=== PATIENT | female | born 1985 | race African-American/Black ===

== ENCOUNTER → 2023-12-09 14:59 | Outpatient (REF) | payer OTHER, SELFPAY | LOC: RAD 14:59 | PROVIDERS: ATTENDING PHYSICIAN Obstetrics & Gynecology | DX: Z36.9 Encounter for antenatal screening, unspecified (principal) | CPT/HCPCS: 76801; 76817 ==

== ENCOUNTER → 2023-12-22 14:03 | Outpatient (REF) | payer OTHER, SELFPAY | LOC: RAD 14:03 | PROVIDERS: ATTENDING PHYSICIAN Obstetrics & Gynecology | DX: O26.851 Spotting complicating pregnancy, first trimester (principal) | CPT/HCPCS: 76801; 76817 ==

== ENCOUNTER 2023-12-30 06:24 | Day surgery (SDC) | payer OTHER, SELFPAY ==
[2023-12-30] VITALS (7 sets, daily range): BP systolic 104–121; BP diastolic 52–72; BMI 37.3
[2023-12-30] MEDS: TYLENOL 1000 MG PO (10:41)
[2023-12-30] MEDS: NORMOSOL-R 1000 IV (10:42)
[2023-12-30] MEDS: VIBRAMYCIN 270 MG IV (11:42)
--- NOTE | 2023-12-30 18:28 | W.IMMPOSTOP ---
Surgical Immed Post Op Note
-
Primary Surgeon: Radha Gr DO
Assisting Surgeon: none
Pre-op Diagnosis: Missed 10wks by LMP 6wks by CRL
Post-op Diagnosis: same
Procedure Performed: Dilation and evacuation
Anesthesia Type: general Dr. eSxton
Specimen / Cultures: products of conception
Estimated Blood Loss: 10ml
Complications: none
Operative Findings: Uterus sounded to 10 cm, POC visualized upon suction.
RH positive and does not require rhogam.
Sponge counts correct.
Stable to recovery.
== END 2023-12-30 16:05 | disposition home or self-care (01) ==
LOC: SDS 06:24
PROVIDERS: ATTENDING PHYSICIAN Obstetrics & Gynecology
DX: O02.1 Missed abortion (principal); Z3A.10 10 weeks gestation of pregnancy
CPT/HCPCS: 59820; 88305; 86850; 86900; 86901

== ENCOUNTER 2024-07-19 10:13 | Emergency (ER) | payer OTHER, SELFPAY ==
[2024-07-19 10:24] VITALS: BP 141/92
[2024-07-19 11:04] LABS: % Basophils 0.5 % (0-2); % Eosinophils 4.5 % (0-6); % Immature Granulocytes 0.5 % (0-0.5); % Lymphocytes 33.5 % (20.5-51.1); % Monocytes 18.2 % (1.7-9.3); % Neutrophils 42.8 % (42.2-75.2); Absolute Eosinophils 0.2 10^3/uL (0-0.7); Absolute Lymphocytes 1.4 10^3/uL (1.2-3.4); Absolute Monocytes 0.8 10^3/uL (0.1-0.6); Absolute Neutrophils 1.8 10^3/uL (1.4-6.5); Hematocrit 37.3 % (37.0-47.0); Hemoglobin 12.4 g/dL (12.0-16.0); Mean Corp Hgb Conc. 33.2 g/dL (33.0-37.0); Mean Corpuscular Volume 90.1 fL (81.0-99.0); Mean Platelet Volume 9.2 fL (7.4-10.4); Nucleated Red Blood Cells % 0 %; Platelet Count 295 10^3/uL (130-400); Red Blood Cell Count 4.14 10^6/uL (4.20-5.40); Red Cell Dist. Width 12.6 % (11.5-14.5); White Blood Cell Count 4.2 10^3/uL (4.8-10.8)
[2024-07-19 11:22] LABS: HCG, Serum Qualitative Screen Negative
[2024-07-19 11:31] LABS: ALT (SGPT) 16 U/L (0-35); AST (SGOT) 21 U/L (14-36); Alkaline Phosphatase 44 U/L (38-126); Blood Urea Nitrogen 9 mg/dl (7-17); Calcium 8.4 mg/dl (8.4-10.2); Carbon Dioxide 25 mmol/L (22-30); Chloride 105 mmol/L (98-107); Glucose 91 mg/dl (70-99); Potassium 3.6 mmol/L (3.5-5.1); Sodium 137 mmol/L (135-145); Total Bilirubin 0.2 mg/dl (0.2-1.3); Total Protein 6.8 g/dl (6.3-8.2); eGFR > 60.00
[2024-07-19 11:43] LABS: COVID-19 Antigen Negative (Negative)
[2024-07-19 11:53] VITALS: BMI 39.1
[2024-07-19] MEDS: DUONEB 3 ML INH (12:34)
[2024-07-19] MEDS: DECADRON 10 MG PO (12:34)
--- NOTE | 2024-07-19 12:39 | ED.GENMED ---
History of Present Illness
General
Chief Complaint: Breathing Problem
Source: patient
Exam Limitations: none
Time Seen by Provider: 07/19/24 12:07
Nursing documentation reviewed up to this point in time: agreed with
History of Present Illness
History of Present Illness:
39 yo female w h/o asthma, migraines, here for cough, today had mid chest pains with the cough. States her Albuterol and Ventolin Inhalers are not helping her cough. Denies fever, chills. Denies abd pain, n/v/d/c. Family at home with URI symptoms.
Past History
Past History
ED Past Medical History: Asthma
ED Past Surgical History: Cholecystectomy, Gynecological, Tonsilectomy and Other
Social History
Tobacco: Non-smoker
Alcohol: Occasional
Personal:
Living: with family
Employment: Employed
Review of Systems
Review of Systems
Allergies reviewed?: Yes
All Other Systems: ROS reviewed and negative except as documented in HPI and ROS
Constitutional: Denies fever
EENT: Reports sore throat (from coughing)
Respiratory: Reports cough; Denies trouble breathing
Cardiac: Reports chest pain; Denies diaphoresis, palpitations or syncope
ABD/GI: Denies abdominal pain, nausea, vomiting, diarrhea or anorexia
: Denies dysuria, frequency or difficulty voiding
Musculoskeletal: Reports no symptoms
Skin: Reports no symptoms
Neurological: Reports no symptoms
Phy Exam
Physical Exam
Physical Exam:
GENERAL: No acute distress. A&Ox3.
CONSTITUTIONAL: Afebrile.
EYES: clear, conjunctivae normal
ENMT: moist mucus membranes, Pharynx nl
RESPIRATORY: Regular respirations, nonlabored, lungs clear. Occasional dry hacking cough. No wheezes, rales or rhonchi
CARDIOVASCULAR: Regular rate and rhythm, no murmurs, no rubs.
GI: Soft, nontender, normal BS
MUSCULOSKELETAL: Moves with ease. Well perfused.
SKIN: Warm, dry, normal
PSYCH: Normal mood and affect. Well kept, interactive and appropriate
NEUROLOGIC: Awake, alert and oriented. No focal neurological deficits
Course
Orders/Labs/Results
Orders:
Orders
07/19/24 10:28
Electrocardiogram (*1) Urgent
Reason for Study: Shortness of Breath
EKG- Treatment ONCE
Test Result ONCE
CR Chest - 2 Views Urgent
Comment:
Reason For Exam: cough
07/19/24 10:48
COVID-19 Antigen Urgent
Source: Nasal Swab
Complete Blood Count/With Diff Urgent
Comprehensive Metabolic Panel Urgent
HCG, Serum Qualitative Screen Urgent
Influenza A+B Rapid Molecular Urgent
ELISEO Source: Nasal Swab
Specimen Description:
07/19/24 12:27
Dexamethasone [Decadron] 10 mg PO NOW STA
Ipratropium/Albuterol Sulfate [Duoneb] 3 ml INH R NOW STA
Abnormal Lab Results
07/19/24
10:48
WBC 4.2 L 10^3/uL
(4.8-10.8)
RBC 4.14 L 10^6/uL
(4.20-5.40)
Absolute Monos (auto) 0.8 H 10^3/uL
(0.1-0.6)
Monocytes % 18.2 H %
(1.7-9.3)
07/19/24 10:48
07/19/24 10:48
Vital Signs
Initial and Last Documented VS:
Initial Vital Signs
Temp Pulse Resp BP Pulse Ox
98.5 F 91 16 141/92 100
07/19/24 10:24 07/19/24 10:24 07/19/24 10:24 07/19/24 10:24 07/19/24 10:24
Last Documented Vital Signs
Temp Pulse Resp BP Pulse Ox
98.5 F 91 16 128/71 100
07/19/24 10:24 07/19/24 10:24 07/19/24 10:24 07/19/24 13:00 07/19/24 13:00
MDM/Problems Addressed
Differential Diagnosis Includes:
Viral URI, Asthma exacerbation, bronchitis, PNA
MDM/Problems Addressed:
39 yo female w h/o asthma, migraines, here for cough, today had mid chest pains with the cough. States her Albuterol and Ventolin Inhalers are not helping her cough. Denies fever, chills. Denies abd pain, n/v/d/c. Family at home with URI symptoms.
Afebrile, NAD
Lungs CTA, intermittent dry hacking cough noted.
EKG NSR
CBC, CMP normal
Covid neg
Flu neg
1:10 PM:
CXR NAD
Patient states after DuoNeb and Decadron she is feeling much better
Prescription for Tessalon Perles and short burst of prednisone sent to her pharmacy.
She has a nebulizer at home that her son uses with plenty of albuterol she can use if needed
*Critical Care Note
Total Time (30-74mins, 75-104mins- exclusive of procedures): Not Applicable
ED Attending Note
-
Portions of this chart may have been created with voice recognition software.� Occasional wrong word or��sound alike� substitutions may have occurred due to the inherent limitations of voice recognition software.
Discharge Plan
Departure
Patient Disposition: Home (Routine Discharge)
Date of Disposition: 07/19/24
Time of Disposition: 13:14
Patient with high blood pressure during this ER visit?: No
Condition: Good
Discharge Problem:
URI (upper respiratory infection)
Instructions: Upper respiratory infection in adults - Discharge instructions
Prescriptions:
New
prednisone 20 mg tablet
40 mg PO DAILY Qty: 8 0RF
benzonatate 100 mg capsule
100 mg PO TID PRN (Reason: Cough) Qty: 30 0RF
No Action
ibuprofen 200 mg Tablet
400 mg PO Q6H PRN (Reason: PAIN/CRAMPING)
albuterol sulfate [ProAir HFA] 90 mcg/actuation Hfa Aerosol Inhaler
2 puff INHALATION 6XD PRN (Reason: ASTHMA)
loratadine [Claritin] 10 mg Tablet
10 mg PO DAILY
scopolamine base 1 mg over 3 days Patch 3 Day
misoprostol 200 mcg Tablet
See Rx Instructions .ROUTE .COMPLEX
Rx Instructions:
Took last night
Referrals:
Pari Ramey CRNP [Family Provider] - As needed
Activity Restrictions/Additional Instructions:
As we discussed, your EKG, chest xray and lab work are all normal.
You most likely have a viral upper respiratory infection
I sent a prescription to your pharmacy for Tessalon Perles for the cough and also Prednisone 40 mg daily for 4 days for your asthma.
Drink plenty of fluids.
Interventions
Interventions:
*Risk Screen - Suicide Last Done: 07/19/24 10:35
*General Assessment Last Done: 07/19/24 11:53
*Neglect/Abuse Screening Last Done: 07/19/24 11:53
ED- Fall Risk Assessment Last Done: 07/19/24 11:53
*ED COVID-19 Vaccine History Last Done: 07/19/24 11:53
*Nursing Disposition Last Done: 07/19/24 13:22
ED- Cardiac Assessment Last Done: 07/19/24 11:53
ED- Pulmonary Assessment Last Done: 07/19/24 11:53
Discharge Date and Time
Discharge Date/Time: 07/19/24 13:22
Print Language: ROMANIAN
[2024-07-19 13:00] VITALS: BP 128/71
== END 2024-07-19 13:22 | disposition home or self-care (01) ==
LOC: EMR 10:13
PROVIDERS: EMERGENCY PHYSICIAN Emergency Medicine; FAMILY PHYSICIAN Nurse Practitioner Family
DX: J06.9 Acute upper respiratory infection, unspecified (principal); J45.909 Unspecified asthma, uncomplicated; Z90.49 Acquired absence of other specified parts of digestive tract
CPT/HCPCS: 94640; 99285; 71046; 80053; 84703; 85025; 87502; 87811; 93005

== ENCOUNTER → 2024-10-21 10:48 | Outpatient (REF) | payer OTHER, SELFPAY | LOC: RAD 10:48 | PROVIDERS: ATTENDING PHYSICIAN Nurse Practitioner Family | DX: O26.851 Spotting complicating pregnancy, first trimester (principal) | CPT/HCPCS: 76801 ==

== ENCOUNTER → 2024-12-13 15:55 | Outpatient (REF) | payer OTHER, SELFPAY | LOC: PNTC 15:55 | PROVIDERS: ATTENDING PHYSICIAN Obstetrics & Gynecology | DX: Z34.82 Encounter for supervision of other normal pregnancy, second trimester (principal) | CPT/HCPCS: 76805 ==

== ENCOUNTER → 2025-01-10 09:00 | Outpatient (REF) | payer OTHER, SELFPAY | LOC: PNTC 09:00 | PROVIDERS: ATTENDING PHYSICIAN Obstetrics & Gynecology | DX: O99.210 Obesity complicating pregnancy, unspecified trimester (principal); O09.529 Supervision of elderly multigravida, unspecified trimester | CPT/HCPCS: 76811; 76817 ==

== ENCOUNTER 2025-01-24 10:47 | Observation (INO) | payer OTHER, SELFPAY ==
[2025-01-24 11:39] LABS: Urine Character Clear (Clear)
[2025-01-24 12:21] VITALS: BP 122/68; BMI 42.6
== END 2025-01-24 15:36 | disposition home or self-care (01) ==
LOC: LDRP 10:47
PROVIDERS: ADMITTING PHYSICIAN Student in an Organized Health Care Education/Training Program; ATTENDING PHYSICIAN Obstetrics & Gynecology
DX: O36.8120 Decreased fetal movements, second trimester, not applicable or unspecified (principal); O26.892 Other specified pregnancy related conditions, second trimester; R10.9 Unspecified abdominal pain; Z3A.22 22 weeks gestation of pregnancy
CPT/HCPCS: 76815; 76817; 76820; 81003; 81015; 87077; 87086; 87147; G0378

== ENCOUNTER → 2025-01-30 14:28 | Outpatient (REF) | payer OTHER, SELFPAY | LOC: PNTC 14:28 | PROVIDERS: ATTENDING PHYSICIAN Obstetrics & Gynecology | DX: O41.00X0 Oligohydramnios, unspecified trimester, not applicable or unspecified (principal) | CPT/HCPCS: 76815; 76820 ==

== ENCOUNTER → 2025-02-13 13:48 | Outpatient (REF) | payer OTHER, SELFPAY | LOC: PNTC 13:48 | PROVIDERS: ATTENDING PHYSICIAN Obstetrics & Gynecology | DX: O41.00X0 Oligohydramnios, unspecified trimester, not applicable or unspecified (principal) | CPT/HCPCS: 76816 ==

== ENCOUNTER → 2025-02-27 15:56 | Outpatient (REF) | payer OTHER, SELFPAY | LOC: PNTC 15:56 | PROVIDERS: ATTENDING PHYSICIAN Student in an Organized Health Care Education/Training Program | DX: O99.210 Obesity complicating pregnancy, unspecified trimester (principal); Z86.39 Personal history of other endocrine, nutritional and metabolic disease; O41.93X0 Disorder of amniotic fluid and membranes, unspecified, third trimester, not applicable or unspecified | CPT/HCPCS: 76815 ==

== ENCOUNTER → 2025-04-03 09:55 | Outpatient (REF) | payer OTHER, SELFPAY | LOC: PNTC 09:55 | PROVIDERS: ATTENDING PHYSICIAN Student in an Organized Health Care Education/Training Program | DX: O09.529 Supervision of elderly multigravida, unspecified trimester (principal); O99.210 Obesity complicating pregnancy, unspecified trimester | CPT/HCPCS: 76816 ==

== ENCOUNTER 2025-04-17 19:18 | Inpatient (IN) | payer OTHER, SELFPAY ==
[2025-04-17 17:43] LABS: Urine Character Clear (Clear)
[2025-04-17 17:48] LABS: Urine Squamous Cell >30 /LPF (Few)
[2025-04-17 17:49] LABS: Urine White Cell 0-2 /HPF (0-5)
[2025-04-17 17:50] LABS: Urine Red Blood Cell 50-60 /HPF (0-2)
[2025-04-17 17:52] VITALS: BP 150/82; BMI 43.8
[2025-04-17 17:56] LABS: Hematocrit 31.8 % (37.0-47.0); Hemoglobin 10.7 g/dL (12.0-16.0); Mean Corp Hgb Conc. 33.6 g/dL (33.0-37.0); Mean Corpuscular Volume 89.1 fL (81.0-99.0); Nucleated Red Blood Cells % 0 %; Platelet Count 253 10^3/uL (130-400); Red Cell Dist. Width 12.6 % (11.5-14.5)
[2025-04-17 18:06] LABS: ALT (SGPT) 12 U/L (0-35); AST (SGOT) 20 U/L (14-36); Albumin 3.2 g/dl (3.5-5.0); Alkaline Phosphatase 95 U/L (38-126); Blood Urea Nitrogen 12 mg/dl (7-17); Calcium 9.0 mg/dl (8.4-10.2); Carbon Dioxide 25 mmol/L (22-30); Chloride 106 mmol/L (98-107); Estimated Creatinine Clearance > 125 ml/min; Glucose 80 mg/dl (70-99); Potassium 4.3 mmol/L (3.5-5.1); Sodium 133 mmol/L (135-145); Total Protein 6.0 g/dl (6.3-8.2); eGFR > 60.00
[2025-04-17] MEDS: ADALAT 10 MG PO (18:58)
[2025-04-17] MEDS: CELESTONE SOLUSPAN 2 MG IM (20:09)
[2025-04-17] MEDS: LR 1000 IV (20:25)
[2025-04-17] MEDS: MAGNESIUM SULFATE 100 IV (20:27)
[2025-04-17] MEDS: MAGNESIUM SULFATE 40 GRAM 1000 IV (20:47)
[2025-04-17] MEDS: CYTOTEC 25 MICROGRAM VAG (21:26)
--- NOTE | 2025-04-17 21:26 | CON.NEO ---
Consultation
-
Date/Time Consultation Requested: 04/17/25 @ 2009
Date/Time Consultation Performed: 04/17/25 @ 2054
Requesting Provider: Dr Flores
Performing Provider: Dr Beck-Leonid
Reason for Consultation: 39 yo at 34 2/7 weeks with severe gHTN with severe features for IOL.
Consultation - Neonatology
Maternal Labs
Blood Type: A Positive
Antibody Screen: Negative
RPR: Nonreactive
Rubella: Immune
Hep B S Ag: Negative
Hep C: Negative
HIV: Nonreactive
Group B Strep: Positive
Chlamydia/GC: Negative
Consult
Points discussed at consult:
- Management at delivery including the possibility of CPAP/intubation/surfactant discussed
- Respiratory: RDS possibility with possibility of worsening for 24-48 hrs, management including CPAP/surfactant/ventilator support may be required
- Nutrition: Hypoglycemia, need for IV fluids, gradual feed advance, Gavage feeding, importance of colostrum feeding, initiation of expression of colostrum within 3-4 hours, availability of donor milk, safety fo donor milk etc. were discussed.
- Procedures: Intubation, CPAP, IV placement, blood tests, umbilical arterial or venous lines, gavage feedings were discussed
- CVS: possibility of PDA not discussed in detail at this time
- [employer]: Rare possibility of IVH and need for head US, grading of IVH and intermediate manager effects of Grade III/IV although extremely rare at >32 weeks were discussed
- Jaundice possibility and need for phototherapy discussed
- Family Centered Care: Discussed FCC with emphasis on parental participation during sign off and during management rounds and is encouraged. Availability of rachid eyes camera also discussed
- Visitation policy.
Mom and Dad were given the opportunity to ask questions throughout and open invitation to call if any questions come as they absorb all the information given so far.
Face to Face Time
Total [id number] Time (in Minutes): 40 mins
[2025-04-18] MEDS: PROCARDIA XL (EXTENDED RELEASE) 30 MG PO (01:53)
[2025-04-18] MEDS: PITOCIN 30 UNITS/NSS 500 ML IV ×2 (01:54→11:50)
[2025-04-18] MEDS: PENICILLIN 110 UNITS IV (01:54)
[2025-04-18] MEDS: PENICILLIN 55 UNITS IV ×2 (05:48→10:11)
[2025-04-18] MEDS: CELESTONE SOLUSPAN 2 MG IM (08:02)
[2025-04-18] MEDS: LR 1000 IV ×2 (10:12→23:34)
[2025-04-18] MEDS: SUBLIMAZE 100 MCG EPIDURAL (10:12)
[2025-04-18] MEDS: FENTANYL/BUPIVACAINE 100 EPIDURAL (10:12)
[2025-04-18 12:18] LABS: B.E. - POC -5.0 mmol/L; Blood Urea Nitrogen - POC 7 mg/dl (3-120); Chloride - POC 100 mmol/L (96-111); Creatinine - POC 0.63 mg/dl (0.3-1.0); Glucose - POC 96 mg/dl (70-99); HCO3 - POC 23 mmol/L (21-28); Hematocrit - POC 47 % PCV (37-47); Hemodilution- POC No; Hemoglobin Calculated - POC 16.0; Ionized Calcium - POC 1.27 mmol/L (1.15-1.33); O2 Saturation %Calculated-POC 26.7 % (94-98); PCO2 - POC 52 mmHg (35-48); PO2 - POC 21 mmHg (83-108); Potassium - POC 5.1 mmol/L (3.5-5.1); Sodium - POC 134 mmol/L (136-145); Specimen Type - POC Arterial; pH - POC 7.25 (7.35-7.45)
[2025-04-18] MEDS: ZITHROMAX INFUSION 250 IV (13:19)
[2025-04-18] MEDS: MAGNESIUM SULFATE 40 GRAM 1000 IV (16:27)
[2025-04-18] MEDS: TORADOL 15 MG IV (18:50)
[2025-04-18] MEDS: COLACE 100 MG PO (19:47)
[2025-04-19] MEDS: TORADOL 15 MG IV ×3 (00:44→14:05)
[2025-04-19] MEDS: FLUSH (NSS) 3 FLUSH IV (00:45)
[2025-04-19 03:33] LABS: Hematocrit 29.1 % (37.0-47.0); Hemoglobin 9.9 g/dL (12.0-16.0); Mean Corp Hgb Conc. 34.0 g/dL (33.0-37.0); Mean Corpuscular Volume 89.0 fL (81.0-99.0); Platelet Count 267 10^3/uL (130-400); Red Cell Dist. Width 12.7 % (11.5-14.5)
[2025-04-19] MEDS: TYLENOL 650 MG PO (06:40)
[2025-04-19] MEDS: PRENATAL PLUS 1 TABLET PO (07:46)
[2025-04-19] MEDS: TRANDATE 200 MG PO ×2 (12:09→20:02)
[2025-04-19] MEDS: COLACE 100 MG PO ×2 (14:05→20:02)
--- NOTE | 2025-04-19 14:16 | W.PN.ANS.POP ---
Anesthesia Post Operative
- Anesthesia Post Op Note
Vital Signs Stable-See Nursing Note: Yes
Airway Patent: Yes
Adequate Pain Control: Yes
Change in Mental Status: No
Current Postoperative Nausea & Vomiting: No
Anesthesia Complications: No
General Anesthetic Recall: No
Unplanned Admission: No
Post Op Hydration Adequate: Yes
[2025-04-20] MEDS: TYLENOL 650 MG PO ×4 (04:20→19:42)
[2025-04-20] MEDS: MOTRIN 600 MG PO ×3 (04:20→21:36)
[2025-04-20] MEDS: PRENATAL PLUS 1 TABLET PO (07:51)
[2025-04-20] MEDS: COLACE 100 MG PO ×2 (07:51→19:42)
[2025-04-20] MEDS: FEOSOL 325 MG PO (07:51)
[2025-04-20] MEDS: TRANDATE 200 MG PO ×2 (08:00→19:43)
[2025-04-21] MEDS: MOTRIN 600 MG PO ×3 (04:18→18:35)
[2025-04-21] MEDS: TYLENOL 650 MG PO ×3 (04:18→18:34)
[2025-04-21] MEDS: PRENATAL PLUS 1 TABLET PO (08:39)
[2025-04-21] MEDS: FEOSOL 325 MG PO (08:39)
[2025-04-21] MEDS: TRANDATE 200 MG PO ×2 (08:40→20:51)
[2025-04-21] MEDS: COLACE 100 MG PO ×2 (08:40→20:51)
[2025-04-21 14:49] LABS: Syphilis/T. pallidum Ab Reflex Negative (Negative)
[2025-04-22] MEDS: TYLENOL 650 MG PO ×2 (01:27→10:41)
[2025-04-22] MEDS: MOTRIN 600 MG PO ×2 (01:27→10:41)
[2025-04-22] MEDS: TRANDATE 200 MG PO (07:46)
[2025-04-22] MEDS: PRENATAL PLUS 1 TABLET PO (07:47)
[2025-04-22] MEDS: FEOSOL 325 MG PO (07:47)
[2025-04-22] MEDS: COLACE 100 MG PO (07:47)
== END 2025-04-22 16:24 | disposition home or self-care (01) | DRG 788 ==
LOC: LDRP 19:18
PROVIDERS: Obstetrics & Gynecology; ADMITTING PHYSICIAN Obstetrics & Gynecology; ATTENDING PHYSICIAN Student in an Organized Health Care Education/Training Program; OTHER PHYSICIAN Pediatrics
PROC: 3E0P7VZ Introduction of Hormone into Female Reproductive, Via Natural or Artificial Opening (ICD-10-PCS; 2025-04-17)
PROC: 10H07YZ Insertion of Other Device into Products of Conception, Via Natural or Artificial Opening (ICD-10-PCS; 2025-04-18)
PROC: 10907ZC Drainage of Amniotic Fluid, Therapeutic from Products of Conception, Via Natural or Artificial Opening (ICD-10-PCS; 2025-04-18)
PROC: 3E033VJ Introduction of Other Hormone into Peripheral Vein, Percutaneous Approach (ICD-10-PCS; 2025-04-18)
PROC: 10D00Z1 Extraction of Products of Conception, Low, Open Approach (ICD-10-PCS; 2025-04-18)
DX: O14.14 Severe pre-eclampsia complicating childbirth (principal); O99.214 Obesity complicating childbirth; O99.824 Streptococcus B carrier state complicating childbirth; O76 Abnormality in fetal heart rate and rhythm complicating labor and delivery; O34.13 Maternal care for benign tumor of corpus uteri, third trimester; D25.2 Subserosal leiomyoma of uterus; O99.344 Other mental disorders complicating childbirth; F32.A Depression, unspecified; Z3A.34 34 weeks gestation of pregnancy; Z37.0 Single live birth; O45.93 Premature separation of placenta, unspecified, third trimester
CPT/HCPCS: 76818; 80053; 81003; 81015; 82570; 84156; 85025; 85027; 86780; 86850; 86900; 86901; 87070; 87077; 87147; 88307

== ENCOUNTER 2025-07-18 05:46 | Day surgery (SDC) | payer OTHER, SELFPAY ==
[2025-06-27 10:45] LABS: Hematocrit 36.8 % (37.0-47.0); Hemoglobin 11.9 g/dL (12.0-16.0); Mean Corp Hgb Conc. 32.3 g/dL (33.0-37.0); Mean Corpuscular Volume 89.3 fL (81.0-99.0); Nucleated Red Blood Cells % 0 %; Platelet Count 343 10^3/uL (130-400); Red Cell Dist. Width 12.7 % (11.5-14.5)
[2025-06-27 13:09] LABS: Blood Urea Nitrogen 11 mg/dl (7-17); Calcium 9.3 mg/dl (8.4-10.2); Carbon Dioxide 28 mmol/L (22-30); Chloride 105 mmol/L (98-107); Glucose 89 mg/dl (70-99); Potassium 4.2 mmol/L (3.5-5.1); Sodium 138 mmol/L (135-145); eGFR > 60.00
[2025-06-27 13:33] VITALS: BMI 40.7
[2025-06-27 14:58] LABS: Beta HCG Quantitative < 2.39 mIU/ml
[2025-07-18] VITALS (13 sets, daily range): BP systolic 124–138; BP diastolic 64–86; BMI 40.7
[2025-07-18] MEDS: NEURONTIN 300 MG PO (06:36)
[2025-07-18] MEDS: HEPARIN 5000 UNITS SC (06:37)
[2025-07-18] MEDS: TYLENOL 1000 MG PO (06:37)
[2025-07-18 06:43] LABS: HCG, Urine Qualitative Screen Negative
[2025-07-18] MEDS: TRANSDERM-SCOP 1 PATCH TRANSDERM (06:57)
[2025-07-18] MEDS: NORMOSOL-R/PLASMALYTE-A 1000 IV (07:00)
--- NOTE | 2025-07-18 08:33 | W.IMMPOSTOP ---
Surgical Immed Post Op Note
-
Primary Surgeon: Radha rG DO
Direct Sales Representative: BRISEIDA Villagomez RNFA
Pre-op Diagnosis: Multiparity, request for sterilization
Post-op Diagnosis: same
Procedure Performed: Laparoscopic bilateral salpingectomy
Anesthesia Type: general Dr. Hampton
Specimen / Cultures: bilateral fallopian tubes
Estimated Blood Loss: 5mL
Urine output: 300ml clear yellow urine
Complications: none
Operative Findings: Enlarged uterus with multiple fibroids. Normal appearing tubes and ovaries. Right ovarian simple cyst.
Stable to recovery.
[2025-07-18] MEDS: ZOFRAN 4 MG IV (09:31)
--- NOTE | 2025-07-18 11:15 | PTCARENOTE ---
Patient was dizzy when up and walking to the bathroom. Patient put into wheelchair and BP checked and it was 144/83. Patient now in bed and resting. Dr. Rodriguez notified and also Rik Hampton Anesthesiologist.
== END 2025-07-18 11:55 | disposition home or self-care (01) ==
LOC: SDS 05:46
PROVIDERS: ATTENDING PHYSICIAN Obstetrics & Gynecology; FAMILY PHYSICIAN Nurse Practitioner Family
DX: Z30.2 Encounter for sterilization (principal)
CPT/HCPCS: 58661; 36415; 80048; 81025; 84702; 85025; 86850; 86900; 86901; 88302